=== PATIENT | female | born 1975 | race African-American/Black ===

== ENCOUNTER 2017-11-22 10:18 | Emergency (ER) | END 2017-11-22 12:05 | disposition home or self-care (01) ==

== ENCOUNTER 2017-11-26 12:37 | Emergency (ER) | END 2017-11-26 17:05 | disposition home or self-care (01) ==

== ENCOUNTER 2017-12-05 23:55 | Emergency (ER) | END 2017-12-06 01:30 | disposition left against medical advice (07) ==